=== PATIENT | female | born 1950 | race Caucasian/White ===

== ENCOUNTER 2016-12-21 20:01 | Inpatient (IN) | payer OTHER, MEDICARE ==
[~2016-12-21] VITALS: Ht 157.5 cm; Wt 63.5 kg
[2016-12-21 20:00] VITALS: O2SAT 100
[2016-12-21 20:15] VITALS: O2SAT 100
[2016-12-21] MEDS ORDERED: IOHEXOL 350 MG/ML 10 ML VIAL (for RAD DIAG) IVCONTRAST ONE (20:22)
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
[2016-12-21 20:24] LABS: AUTOMATED NEUTROPHIL # 8.3 TH/MM3 (1.8-7.7); BASOPHIL # 0.1 TH/MM3 (0-0.2); EOSINOPHIL # 0.3 TH/MM3 (0-0.4); HEMATOCRIT 47.1 % (35.0-46.0); HEMOGLOBIN 15.5 GM/DL (11.6-15.3); LYMPH % 28.5 % (9.0-44.0); MEAN CELL VOLUME 87.4 FL (80.0-100.0); MEAN CORPUSCULAR HEMOGLOBIN 28.8 PG (27.0-34.0); MEAN PLATELET VOLUME 10.8 FL (7.0-11.0); MONO % 8.8 % (0.0-8.0); MONOCYTE # 1.2 TH/MM3 (0-0.9); NEUT % 59.7 % (16.0-70.0); PLATELET COUNT 296 TH/MM3 (150-450); RED BLOOD COUNT 5.39 MIL/MM3 (4.00-5.30); WHITE BLOOD COUNT 13.9 TH/MM3 (4.0-11.0)
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
[2016-12-21 20:38] LABS: INTERNATIONAL NORMALIZED RATIO 1.1 RATIO
[2016-12-21 20:44] VITALS: O2SAT 100
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
[2016-12-21] MEDS ORDERED: SODIUM CHLORIDE 0.9% FLUSH 10 ML FLUSH IV FLUSH PRN (21:00)
[2016-12-21] MEDS ORDERED: MISCELLANEOUS NURSING INFORMATION XX SCH (21:00)
[2016-12-21] MEDS ORDERED: MAGNESIUM HYDROXIDE SUSP 30 ML CUP PO PRN (21:00)
[2016-12-21] MEDS ORDERED: CHLORHEXIDINE GLUCONATE 2 % 1 PACK (2 CLOTHS) TOP PRN (21:00)
[2016-12-21] MEDS ORDERED: ONDANSETRON HCL 4 MG/2 ML VIAL IV PUSH PRN (21:00)
[2016-12-21] MEDS ORDERED: ENALAPRILAT 1.25 MG/ML VIAL IV PUSH PRN (21:00)
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
[2016-12-21 22:00] VITALS: BP 134/75; PULSE 120; PULSE 126; RESP 20; TEMP 97.7; O2SAT 100
[2016-12-21] MEDS ORDERED: SODIUM CHLORIDE 23.4% INJ 240 MEQ in SYRINGE/BAG 1 EA IV ONE (23:00)
[2016-12-21] MEDS: 3% SALINE INJ 500 ML IV SCH (23:03)
--- NOTE | 2016-12-21 23:05 | RADRPT ---
EXAM DATE/TIME: 12/21/2016 23:23 [facility] COMPARISON: CHEST SINGLE AP, December 21, 2016, 19:56. INDICATIONS : Evaluate central line placement MEDICAL HISTORY : None. SURGICAL HISTORY : None. ENCOUNTER: Subsequent ACUITY: 1 day PAIN SCORE: Non-responsive. LOCATION: chest FINDINGS: A single view of the chest demonstrates bilateral upper lobe and left lower lobe consolidation. Endot atnya tube in the right mainstem bronchus. Nasogastric tube tip in stomach. Left subclavian central line with tip in the right atrium. Osseous structures are intact. CONCLUSION: 1. Endotracheal tube with tip in the right mainstem bronchus. This should be retracted 3 cm. 2. Left subclavian central line with tip in the right atrium. No pneumothorax. 3. Bilateral upper lobe and left lower lobe consolidation. Jamshid Aiken MD on December 21, 2016 at 23:02 Board Certified Radiologist. This report was verified electronically.
--- NOTE | 2016-12-21 23:05 | RADRPT ---
EXAM DATE/TIME: 12/21/2016 23:23 [facility] COMPARISON: CHEST SINGLE AP, December 21, 2016, 19:56. INDICATIONS : Evaluate central line placement MEDICAL HISTORY : None. SURGICAL HISTORY : None. ENCOUNTER: Subsequent ACUITY: 1 day PAIN SCORE: Non-responsive. LOCATION: chest FINDINGS: A single view of the chest demonstrates bilateral upper lobe and left lower lobe consolidation. Endot tanya tube in the right mainstem bronchus. Nasogastric tube tip in stomach. Left subclavian central line with tip in the right atrium. Osseous structures are intact. CONCLUSION: 1. Endotracheal tube with tip in the right mainstem bronchus. This should be retracted 3 cm. 2. Left subclavian central line with tip in the right atrium. No pneumothorax. 3. Bilateral upper lobe and left lower lobe consolidation. Jamshid Aiken MD on December 21, 2016 at 23:02 Board Certified Radiologist. This report was verified electronically.
[2016-12-21 23:18] VITALS: O2SAT 100
[2016-12-22] VITALS (17 sets, daily range): BP systolic 118–146; BP diastolic 56–75; PULSE 85–105; RESP 20; TEMP 96.3–102.2; O2SAT 100
[2016-12-22] MEDS: SODIUM CHLOR 0.9% 1000 ML INJ 1,000 ML IV SCH ×3 (00:35→14:43)
--- NOTE | 2016-12-22 01:08 | PD.PROCEDR ---
Procedure Note Procedure Centerline placement A time-out was completed verifying correct patient, procedure, site, positioning , and special equipment if applicable. The patient was placed in a dependent position appropriate for central line placement based on the vein to be cannulated. The patients left shoulder was prepped and draped in sterile fashion. 1% Lidocaine was used to anesthetize the surrounding skin area. A triple lumen 9-[place] Cordis catheter was introduced into the the left subclavian vein using the Seldinger technique. The catheter was threaded smoothly over the guide wire and appropriate blood return was obtained. Each lumen of the catheter was evacuated of air and flushed with sterile saline. The catheter was then sutured in place to the skin and a sterile dressing applied. Perfusion to the extremity distal to the point of catheter insertion was checked and found to be adequate. Estimated Blood Loss: 1ml The patient tolerated the procedure well and there were no complications. Kraig Cuadra MD Dec 22, 2016 01:08
--- NOTE | 2016-12-22 01:08 | PD.PROCEDR ---
Procedure Note Procedure Arterial line placement A time-out was completed verifying correct patient, procedure, site, positioning , and special equipment if applicable. Allens test was performed to ensure adequate perfusion. The patients right wrist was prepped and draped in sterile fashion. 1% Lidocaine was used to anesthetize the area. A 18G Arrow arterial line was introduced into the radial artery. The catheter was threaded over the guide wire and the needle was removed with appropriate pulsatile blood return. The catheter was then sutured in place to the skin and a sterile dressing applied. Perfusion to the extremity distal to the point of catheter insertion was checked and found to be adequate. Estimated Blood Loss: 1ml The patient tolerated the procedure well and there were no complications. Kraig Cuadra MD Dec 22, 2016 01:08
--- NOTE | 2016-12-22 01:08 | PD.PROCEDR ---
Procedure Note Procedure Centerline placement A time-out was completed verifying correct patient, procedure, site, positioning , and special equipment if applicable. The patient was placed in a dependent position appropriate for central line placement based on the vein to be cannulated. The patients left shoulder was prepped and draped in sterile fashion. 1% Lidocaine was used to anesthetize the surrounding skin area. A triple lumen 9-[place] Cordis catheter was introduced into the the left subclavian vein using the Seldinger technique. The catheter was threaded smoothly over the guide wire and appropriate blood return was obtained. Each lumen of the catheter was evacuated of air and flushed with sterile saline. The catheter was then sutured in place to the skin and a sterile dressing applied. Perfusion to the extremity distal to the point of catheter insertion was checked and found to be adequate. Estimated Blood Loss: 1ml The patient tolerated the procedure well and there were no complications. Kraig Cuadra MD Dec 22, 2016 01:08
--- NOTE | 2016-12-22 01:08 | PD.PROCEDR ---
Procedure Note Procedure Centerline placement A time-out was completed verifying correct patient, procedure, site, positioning , and special equipment if applicable. The patient was placed in a dependent position appropriate for central line placement based on the vein to be cannulated. The patients left shoulder was prepped and draped in sterile fashion. 1% Lidocaine was used to anesthetize the surrounding skin area. A triple lumen 9-[place] Cordis catheter was introduced into the the left subclavian vein using the Seldinger technique. The catheter was threaded smoothly over the guide wire and appropriate blood return was obtained. Each lumen of the catheter was evacuated of air and flushed with sterile saline. The catheter was then sutured in place to the skin and a sterile dressing applied. Perfusion to the extremity distal to the point of catheter insertion was checked and found to be adequate. Estimated Blood Loss: 1ml The patient tolerated the procedure well and there were no complications. Kraig Cuadra MD Dec 22, 2016 01:08
[2016-12-22] MEDS: CHLORHEXIDINE GLUCONATE 2 % 1 PACK (2 CLOTHS) TOP SCH (04:00)
[2016-12-22 04:09] LABS: AUTOMATED NEUTROPHIL # 13.5 TH/MM3 (1.8-7.7); BASOPHIL % 0.3 % (0.0-2.0); EOSINOPHIL % 0.1 % (0.0-4.0); HEMATOCRIT 39.4 % (35.0-46.0); HEMOGLOBIN 13.1 GM/DL (11.6-15.3); LYMPHOCYTE # 0.9 TH/MM3 (1.0-4.8); MEAN CELL VOLUME 86.6 FL (80.0-100.0); MEAN CORPUSCULAR HEMOGLOBIN 28.9 PG (27.0-34.0); MEAN CORPUSCULAR HGB CONC 33.4 % (32.0-36.0); MEAN PLATELET VOLUME 10.5 FL (7.0-11.0); MONO % 8.3 % (0.0-8.0); MONOCYTE # 1.3 TH/MM3 (0-0.9); NEUT % 85.3 % (16.0-70.0); PLATELET COUNT 204 TH/MM3 (150-450); RED BLOOD COUNT 4.55 MIL/MM3 (4.00-5.30); RED CELL DISTRIBUTION WIDTH 13.1 % (11.6-17.2); WHITE BLOOD COUNT 15.8 TH/MM3 (4.0-11.0)
[2016-12-22 04:21] LABS: ALBUMIN 2.8 GM/DL (3.4-5.0); AST (GOT) 69 U/L (15-37); BLOOD UREA NITROGEN 10 MG/DL (7-18); CALCIUM 7.7 MG/DL (8.5-10.1); CHLORIDE 124 MEQ/L (98-107); CREATININE 0.43 MG/DL (0.50-1.00); GLOMERULAR FILTRATION RATE 146 ML/MIN (>89); GLUCOSE,RANDOM 164 MG/DL (74-106); SODIUM (NA) 155 MEQ/L (136-145)
[2016-12-22 04:26] LABS: ALKALINE PHOSPHATASE 64 U/L (45-117); ALT (GPT) 44 U/L (10-53); TOTAL BILIRUBIN ADULT 0.6 MG/DL (0.2-1.0); TOTAL PROTEIN 5.7 GM/DL (6.4-8.2)
--- NOTE | 2016-12-22 05:38 | RADRPT ---
EXAM DATE/TIME: 12/22/2016 04:33 [facility] COMPARISON: CHEST SINGLE AP, December 21, 2016, 23:23. INDICATIONS : Short of breath. MEDICAL HISTORY : None. SURGICAL HISTORY : None. ENCOUNTER: Subsequent ACUITY: 2 days PAIN SCORE: 0/10 LOCATION: Bilateral chest FINDINGS: A single view of the chest demonstrates bilateral pulmonary opacities with slight improvement in the upper lobes. Heart normal in size. Endotracheal tube remains in the right mainstem bronchus. It shoul d be retracted 3 cm. Nasogastric tube and left subclavian central line are stable in position. The ca rdiomediastinal contours are unremarkable. Osseous structures are intact. CONCLUSION: 1. Endotracheal tube remains in the right mainstem bronchus. This should be retracted 3 cm. 2. Bilateral pulmonary opacities slightly improved in the upper lobes. 1. Jamshid Aiken MD on December 22, 2016 at 5:34 Board Certified Radiologist. This report was verified electronically.
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
[2016-12-22] MEDS: PANTOPRAZOLE SODIUM 40 MG VIAL IVP SCH ×2 (07:11→19:42)
[2016-12-22] MEDS ORDERED: FENO160T PO (08:00)
[2016-12-22] MEDS ORDERED: METH5TAB4 PO (08:00)
[2016-12-22] MEDS ORDERED: LISI10TA3 PO (08:00)
[2016-12-22] MEDS ORDERED: ATOR20TA15 PO (08:00)
[2016-12-22] MEDS: levETIRAcetam INJ 500 MG in SODIUM CHLORIDE 0.9% INJ 100 ML IV SCH ×2 (09:34→19:42)
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
[2016-12-22] MEDS: ACETAMINOPHEN 1000 MG/100 ML 100 ML IV PRN ×2 (13:50→19:41)
[2016-12-22] MEDS: 3% SALINE INJ 500 ML IV SCH (14:43)
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
--- NOTE | 2016-12-22 17:37 | PD.PROCEDR ---
Procedure Note Procedure Hal Manuel MD Dec 22, 2016 17:37
--- NOTE | 2016-12-22 17:37 | PD.PROCEDR ---
Procedure Note Procedure Hal Manuel MD Dec 22, 2016 17:37
--- NOTE | 2016-12-22 17:37 | PD.PROCEDR ---
Procedure Note Procedure Hal Manuel MD Dec 22, 2016 17:37
[2016-12-23] VITALS (13 sets, daily range): BP systolic 110–141; BP diastolic 43–79; PULSE 72–100; RESP 20; TEMP 98.2–100.6; O2SAT 85–100
[2016-12-23] MEDS: SODIUM CHLOR 0.9% 1000 ML INJ 1,000 ML IV SCH (03:33)
[2016-12-23] MEDS: CHLORHEXIDINE GLUCONATE 2 % 1 PACK (2 CLOTHS) TOP SCH (04:00)
[2016-12-23] MEDS: levETIRAcetam INJ 500 MG in SODIUM CHLORIDE 0.9% INJ 100 ML IV SCH ×2 (09:40→20:57)
[2016-12-23] MEDS: 3% SALINE INJ 500 ML IV SCH (09:41)
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
[2016-12-23 10:43] LABS: AUTOMATED NEUTROPHIL # 12.2 TH/MM3 (1.8-7.7); BASOPHIL % 0.2 % (0.0-2.0); HEMATOCRIT 37.2 % (35.0-46.0); HEMOGLOBIN 12.6 GM/DL (11.6-15.3); LYMPH % 3.4 % (9.0-44.0); LYMPHOCYTE # 0.5 TH/MM3 (1.0-4.8); MEAN CELL VOLUME 86.5 FL (80.0-100.0); MEAN CORPUSCULAR HEMOGLOBIN 29.3 PG (27.0-34.0); MEAN CORPUSCULAR HGB CONC 33.9 % (32.0-36.0); MEAN PLATELET VOLUME 10.8 FL (7.0-11.0); MONO % 8.2 % (0.0-8.0); MONOCYTE # 1.1 TH/MM3 (0-0.9); NEUT % 88.2 % (16.0-70.0); PLATELET COUNT 144 TH/MM3 (150-450); RED CELL DISTRIBUTION WIDTH 13.7 % (11.6-17.2); WHITE BLOOD COUNT 13.8 TH/MM3 (4.0-11.0)
[2016-12-23 11:40] LABS: ALBUMIN 2.1 GM/DL (3.4-5.0); ALKALINE PHOSPHATASE 56 U/L (45-117); ALT (GPT) 33 U/L (10-53); AST (GOT) 44 U/L (15-37); BICARBONATE 16.9 MEQ/L (21.0-32.0); BLOOD UREA NITROGEN 9 MG/DL (7-18); CALCIUM 7.8 MG/DL (8.5-10.1); CHLORIDE 134 MEQ/L (98-107); CREATININE 0.35 MG/DL (0.50-1.00); GLOMERULAR FILTRATION RATE 186 ML/MIN (>89); GLUCOSE,RANDOM 135 MG/DL (74-106); TOTAL BILIRUBIN ADULT 0.6 MG/DL (0.2-1.0); TOTAL PROTEIN 5.4 GM/DL (6.4-8.2)
[2016-12-23 11:43] LABS: SODIUM (NA) 160 MEQ/L (136-145)
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
[2016-12-23] MEDS ORDERED: HYOSCYAMINE SOLN 0.125 MG/ML 15 ML BTL PO PRN (13:45)
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
[2016-12-23] MEDS ORDERED: LORazepam 2 MG/ML VIAL IV PUSH ONE ×2 (15:00→15:15)
[2016-12-23] MEDS ORDERED: MORPHINE SULFATE 8 MG/ML INJ IV PUSH ONE (15:00)
[2016-12-23] MEDS ORDERED: MORPHINE SULFATE 4 MG/ML INJ IV PUSH ONE (15:15)
[2016-12-23] MEDS ORDERED: LORazepam 2 MG/ML VIAL IV PUSH PRN ×3 (15:30)
[2016-12-23] MEDS ORDERED: FUROSEMIDE 20 MG/2 ML VIAL IV PUSH PRN (15:30)
[2016-12-23] MEDS ORDERED: ACETAMINOPHEN 650 MG SUPP RECTAL PRN (15:30)
[2016-12-23] MEDS ORDERED: MORPHINE SULFATE 8 MG/ML INJ IV PUSH PRN (15:30)
[2016-12-23] MEDS ORDERED: MORPHINE SULFATE 4 MG/ML INJ IV PUSH PRN (15:30)
[2016-12-23] MEDS ORDERED: BISACODYL 10 MG SUPP RECTAL PRN (15:30)
[2016-12-23] MEDS: LORazepam 2 MG/ML VIAL IV PUSH SCH (19:51)
[2016-12-23] MEDS: MORPHINE SULFATE 4 MG/ML INJ IV PUSH SCH ×2 (19:52→22:54)
[2016-12-23] MEDS: LORazepam 2 MG/ML VIAL IV PUSH PRN ×2 (20:56→22:54)
[2016-12-24] MEDS: LORazepam 2 MG/ML VIAL IV PUSH SCH
[2016-12-24 02:25] VITALS: O2SAT 80
[2016-12-24] MEDS: MORPHINE SULFATE 8 MG/ML INJ IV PUSH PRN ×2 (02:41→03:00)
[2016-12-24] MEDS: LORazepam 2 MG/ML VIAL IV PUSH PRN ×2 (02:42→03:11)
[2016-12-24] MEDS: MORPHINE SULFATE 4 MG/ML INJ IV PUSH SCH (03:12)
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
== END 2016-12-24 05:34 | disposition expired | DRG 25 ==
LOC: NEPI 20:01 → EDBD 20:22 → NEDA 20:22 → N03A 21:12
PROVIDERS: ADMIT Surgery Surgical Critical Care; ATTEND Surgery Surgical Critical Care
PROC: 00H032Z Insertion of Monitoring Device into Brain, Percutaneous Approach (ICD-10-PCS; principal; 2016-12-21)
PROC: 4A103BD Monitoring of Intracranial Pressure, Percutaneous Approach (ICD-10-PCS; 2016-12-21)
PROC: 5A1945Z Respiratory Ventilation, 24-96 Consecutive Hours (ICD-10-PCS; 2016-12-21)
PROC: 02H633Z Insertion of Infusion Device into Right Atrium, Percutaneous Approach (ICD-10-PCS; 2016-12-21)
PROC: 03HY32Z Insertion of Monitoring Device into Upper Artery, Percutaneous Approach (ICD-10-PCS; 2016-12-22)
DX: S06.5X9A Traumatic subdural hemorrhage with loss of consciousness of unspecified duration, initial encounter (principal); J96.00 Acute respiratory failure, unspecified whether with hypoxia or hypercapnia; S06.6X9A Traumatic subarachnoid hemorrhage with loss of consciousness of unspecified duration, initial encounter; Z66 Do not resuscitate; R40.2431 Glasgow coma scale score 3-8, in the field [EMT or ambulance]; V18.4XXA Pedal cycle driver injured in noncollision transport accident in traffic accident, initial encounter; Y93.55 Activity, bike riding; Z51.5 Encounter for palliative care; I10 Essential (primary) hypertension; E78.5 Hyperlipidemia, unspecified; E07.9 Disorder of thyroid, unspecified
CPT/HCPCS: 36556; 61210; 70450; 71010; 71260; 72125; 72170; 74177; 80053; 82435; 82565; 82805; 82947; 84132; 84295; 84520; 85025; 85384; 85610; 85730; 86850; 86900; 86901; 86920; 87641; 94002; 94003; 96374; 99291; C9113; G0390; J0131; J1953; J2060; J2270; J7030; Q9967